=== PATIENT | male | born 1990 | race Two or more races ===

== ENCOUNTER 2022-08-03 17:56 | Emergency (ER) | payer MEDICAID, SELFPAY ==
[2022-08-03 18:16] VITALS: BP 163/109; PULSE 114; RESP 18; TEMP 36.6; O2SAT 98; BMI 29.0
--- NOTE | 2022-08-03 18:16 | ECG_ITS ---
Test Reason : weakness Blood Pressure : / mmHG Vent. Rate : 092 BPM Atrial Rate : 092 BPM P-R Int : 144 ms QRS Dur : 086 ms QT Int : 352 ms P-R-T Axes : 068 061 -22 degrees QTc Int : 435 ms Normal sinus rhythm Possible Inferior infarct (cited on or before 26-APR-2015) T wave abnormality, consider lateral ischemia Abnormal ECG When compared with ECG of 26-APR-2015 17:22, No significant change was found Referred By: Fady Springer Electronically Signed By:SUSANA DOUGHERTY MD
--- NOTE | 2022-08-03 18:16 | ED.GENADULT ---
HPI - General Adult General Chief complaint: General Medical <PATRICIA Morse - Last Filed: 08/03/22 18:20> Stated complaint: not feeling well <PATRICIA Morse - Last Filed: 08/03/22 18:20> Time Seen by Provider: 08/04/22 00:22 <PATRICIA Morse - Last Filed: 08/03/22 18:20> Source: patient, RN notes reviewed and old records reviewed <Ken Campa - Last Filed: 08/04/22 00:58> Mode of arrival: ambulatory <Ken Campa - Last Filed: 08/04/22 00:58> Limitations: no limitations <Ken Campa - Last Filed: 08/04/22 00:58> History of Present Illness HPI narrative: 32-year-old male presents for evaluation of ?sometimes my whole body feels numb. Currently states he does not feel this way. He denies any cardiac complaints with exception of ?dry skin a my penis and a whitish discharge. ? He reports he is not circumcised He states that he has not been sexually active in at least 2 years so he is concerned for a yeast infection Patient also reports he has a seizure disorder and he is out of his Depakote for which he takes 1 g b.i.d. He has not had this medication at least a week Patient reports he does not her primary doctor which is why could not get a refill He states that he also takes Keppra and metformin but he has these medications at home still Patient reports that he used to be any blood pressure medication, is unsure which 1 it was but he has not been on this for at least 2 years Denies any headaches, fevers, chills, cough, chest pain, abdominal pain, nausea, vomiting <Ken Campa - Last Filed: 08/04/22 00:58> Related Data Home medications: Previous Rx's Medication Instructions Recorded clotrimazole 1 % topical cream 1 appl topical BID 2 weeks #30 08/04/22 grams divalproex 500 mg tablet,delayed 1,000 mg PO BID #120 tabs 08/04/22 release (Depakote) <PATRICIA Morse Last Filed: 08/03/22 18:20> Allergies/adverse reactions: Allergies Allergy/AdvReac Type Severity Reaction Status Date / Time No Known Allergies Allergy Unverified 12/19/19 16:38 <PATRICIA Morse - Last Filed: 08/03/22 18:20> Review of Systems Constitutional: Constitutional: Denies body ache(s), Denies fever(s), Denies headache(s), Reports malaise and Denies weakness <Kne Campa Last Filed: 08/04/22 00:58> Eyes: Eyes: Denies blurry vision <Ken Campa Last Filed: 08/04/22 00:58> ENT: Denies headache(s) and Denies sore throat <Ken Campa Last Filed: 08/04/22 00:58> Cardiovascular: Cardiovascular: Denies chest pain, Denies rapid heart rate, Denies dyspnea and Denies dyspnea on exertion <Ken Campa Last Filed: 08/04/22 00:58> Respiratory: Respiratory: Denies chest congestion, Denies cough, Denies dyspnea and Denies dyspnea on exertion <Ken Campa Last Filed: 08/04/22 00:58> Gastrointestinal: Gastrointestinal: Denies abdominal pain, Denies diarrhea, Denies nausea and Denies vomiting <Ken Campa Last Filed: 08/04/22 00:58> Genitourinary: Genitourinary: Reports other (Reports dry, cracked penis and whitish discharge around the foreskin) <Ken Campa Last Filed: 08/04/22 00:58> Musculoskeletal: Musculoskeletal: Denies back pain <Ken Campa Last Filed: 08/04/22 00:58> Neurologic: Denies headache(s) and Denies weakness <Ken Campa Last Filed: 08/04/22 00:58> PMF Social History Social History: Social History Use of substances other than those prescribed or required for medical reasons: No Advance Directives: No Advance Directives Information Provided: Yes <PATRICIA Morse - Last Filed: 08/03/22 18:20> Physical Exam ED Vital Signs: Vital Signs - 24 hr 08/03/22 18:16 05/03/23 23:04 08/03/22 23:50 Temperature 98 F 96.9 F 98.3 F Pulse Rate 114 H 93 90 Respiratory Rate 18 18 16 Blood Pressure 163/109 H 142/94 H 141/92 H Pulse Oximetry 98 98 97 Oxygen Delivery Method Room Air Room Air Room Air BMI result Body Mass Index 29.0 <PATRICIA Morse - Last Filed: 08/03/22 18:20> Vital Signs - 24 hr 08/03/22 18:16 08/03/22 23:04 08/03/22 23:50 Temperature 98 F 96.9 F 98.3 F Pulse Rate 114 H 93 90 Respiratory Rate 18 18 16 Blood Pressure 163/109 H 142/94 H 141/92 H Pulse Oximetry 98 98 97 Oxygen Delivery Method Room Air Room Air Room Air BMI result Body Mass Index 29.0 <Ken Campa - Last Filed: 08/04/22 00:58> Const General: healthy appearing, comfortable, no acute distress, alert and awake <Ken Campa - Last Filed: 08/04/22 00:58> Nutritional Appearance: well nourished <Ken Campa Last Filed: 08/04/22 00:58> Orientation/consciousness: patient oriented x3 <Ken Campa Last Filed: 08/04/22 00:58> HENMT Head: Yes normocephalic and Yes atraumatic <Ken Campa Last Filed: 08/04/22 00:58> Throat: Yes posterior oropharynx normal <Ken Campa Last Filed: 08/04/22 00:58> Eyes Eyelids: Yes eyelids normal <Ken Campa Last Filed: 08/04/22 00:58> Conjunctivae: conjunctivae normal <Ken Campa Last Filed: 08/04/22 00:58> Sclerae: sclerae normal <Ken Cardenas Last Filed: 08/04/22 00:58> Corneas: corneas normal <Ken Campa Last Filed: 08/04/22 00:58> Pupils: Equal, round and reactive pupils present <Ken Campa Last Filed: 08/04/22 00:58> EOM: EOMs intact bilaterally <Ken Cardenas Last Filed: 08/04/22 00:58> Neck Neck: Yes full ROM <Ken Cardenas Last Filed: 08/04/22 00:58> Resp Effort & Inspection: normal respiratory effort, able to speak in complete sentences, no audible wheezes and not labored <Ken Cardenas Last Filed: 08/04/22 00:58> Auscultation: clear to auscultation bilaterally <Ken ORawlins - Last Filed: 08/04/22 00:58> Cardio Rate: regular rate <Ken ORawlins Filed: 08/04/22 00:58> Rhythm: regular rhythm <Ken ORyne Filed: 08/04/22 00:58> GI Inspection: No distended <Ken ORyne Filed: 08/04/22 00:58> Palpation (GI): Soft to palpation, not firm, nontender, no guarding and not rigid <Kencooper Cardenas Last Filed: 08/04/22 00:58> Auscultation: normoactive bowel sounds <Ken ORawlins Filed: 08/04/22 00:58> Other: The patient's foreskin is easily retractable but is mildly edematous. The glans of the penis is slightly erythematous with minimal his discharge underneath the foreskin. No urethral discharge <Ken Cardenas Last Filed: 08/04/22 00:58> Skin General skin exam: elasticity normal <Ken ORawlins - Last Filed: 08/04/22 00:58> Neuro General: patient oriented x3 <Kencooper Cardenas Last Filed: 08/04/22 00:58> Cranial nerves: Yes Equal, round and reactive pupils present and Yes Bilaterally intact EOM present <Kencooper Cardenas Last Filed: 08/04/22 00:58> Cognition (Neuro): normal cognition <Kencooper Cardenas Last Filed: 08/04/22 00:58> Extrem Other: Moving all extremities well without any obvious deformities <Kencooper Cardenasy - Last Filed: 08/04/22 00:58> Course Course Course Narrative: This is an RME: Additional HPI, ROS, PE not included below will be deferred to primary provider. 32-year-old male hx HTN, HLD, DM presents for evaluation of not feeling well, reports he feels numb from his head down to his feet for the past 2 days, also concerned he might have a yeast infection, weight discharge around the head of the penis. Patient also reports he needs the refill on his seizure medications because he has not been taking them as he ran out and does not have a PCP. Patient is not concerns for STD states he is not sexually active. On exam patient is noted to be tachycardic heart rate 120 blood pressure 202/117 in the left arm, 163/109 right arm. Patient without chest pain or shortness of breath also no headache, vision changes, NHIHSS-0 . Tells me he is unsure if he has HTN meds. Plan- labs, ekg <PATRICIA Morse - Last Filed: 08/03/22 18:20> Medical Decision Making Medical Decision Making [facility] Narrative: 32-year-old male presents for evaluation of balanitis likely Darlene. Will treat with clotrimazole. He also complains of occasional whole-body numbness which could be related to anxiety but he currently does not feel this. He was somewhat hypertensive on arrival but this improved without any intervention. Patient reports he plans to get that to the primary doctor starting tomorrow. He has his Keppra and metformin at home, I will prescribe a month supply of Depakote and he was given 1 dose in the ER. His blood work was significant for a magnesium of 1.4, this was repleted in the ER. Patient was offered STD testing but declined as he has not been sexually active in at least 2 years <Ken Campa - Last Filed: 08/04/22 00:58> Differential Diagnosis Balanitis UTI Gonorrhea Chlamydia Seizure disorder Hypertension <Ken Campa - Last Filed: 08/04/22 00:58> Lab Data [facility] Lab Attestation statement: I reviewed the patient's lab results. <Ken Campa - Last Filed: 08/04/22 00:58> Patient has elevated glucose to 282 but no evidence of DKA. His magnesium was 1.4 which was replaced, otherwise reassuring lab values <Ken GiordanoRawlins - Last Filed: 08/04/22 00:58> Result Diagrams: 08/03/22 20:18 08/03/22 20:18 <PATRICIA Morse - Last Filed: 08/03/22 18:20> Labs: Lab Results 08/03/22 08/03/22 08/03/22 Range/Units 20:18 20:18 20:18 WBC 9.7 (4.8-10.8) X10*3/uL RBC 5.64 (4.60-5.80) X10*6/uL Hgb 15.8 (14.0-18.0) g/dl Hct 45.3 (42.0-52.0) % MCV 80.3 (80.0-98.0) fL MCH 28.0 (27.0-33.0) pg MCHC 34.9 (31.0-36.0) g/dl RDW 12.8 (11.0-16.0) % Plt Count 326 (160-400) X10*3/uL MPV 9.7 (9.4-12.4) fL Immature Gran % (Auto) 1.0 H (0.0-0.4) % Neut % (Auto) 49.0 (45-73) % Lymph % (Auto) 41.5 H (20-40) % Frontier % (Auto) 7.7 (2-11) % Eos % (Auto) 0.4 (0-4) % Baso % (Auto) 0.4 (0-2) % Lymph # (Auto) 4.0 (1.2-4.9) X10*3/uL Frontier # (Auto) 0.8 (0.1-1.2) X10*3/uL Eos # (Auto) 0.0 (0.0-0.4) X10*3/uL Baso # (Auto) 0.0 (0.0-0.2) X10*3/uL Abs Immat Gran (auto) 0.10 H (0.00-0.03) X10*3/uL Absolute Neuts (auto) 4.8 (2.0-8.3) x10*3/uL Absolute Nucleated RBC 0.000 (0.0-0.012) X10*3/uL Nucleated RBC % (auto) 0.0 (0.0-0.2) /100WBC Sodium 136 (135-145) mmol/L Potassium 3.8 (3.3-5.1) mmol/L Chloride 98 (96-108) mmol/L Carbon Dioxide 26 (22-29) mmol/L Anion Gap 16 (12-20) BUN 13 (9-16) mg/dL Creatinine 1.01 (0.5-1.4) mg/dL Estim Creat Clear Calc 106.7 Estimated GFR > 60 Random Glucose 282 H (60-115) mg/dL Calcium 9.9 (8.4-10.2) mg/dL Magnesium 1.4 L* (1.6-2.6) mg/dL Total Bilirubin 0.4 (0.0-1.0) mg/dL AST 24 (5-37) U/L ALT 50 H (0-40) U/L Alkaline Phosphatase 72 (39-117) U/L Troponin I High Sens < 2.7 (<3.5-35.0) ng/L Total Protein 8.4 H (6.5-8.0) g/dL Albumin 4.8 (3.5-5.0) g/dL <PATRICIA Morse - Last Filed: 08/03/22 18:20> Lab Results 08/03/22 08/03/22 08/03/22 Range/Units 20:18 20:18 20:18 WBC 9.7 (4.8-10.8) X10*3/uL RBC 5.64 (4.60-5.80) X10*6/uL Hgb 15.8 (14.0-18.0) g/dl Hct 45.3 (42.0-52.0) % MCV 80.3 (80.0-98.0) fL MCH 28.0 (27.0-33.0) pg MCHC 34.9 (31.0-36.0) g/dl RDW 12.8 (11.0-16.0) % Plt Count 326 (160-400) X10*3/uL MPV 9.7 (9.4-12.4) fL Immature Gran % (Auto) 1.0 H (0.0-0.4) % Neut % (Auto) 49.0 (45-73) % Lymph % (Auto) 41.5 H (20-40) % Frontier % (Auto) 7.7 (2-11) % Eos % (Auto) 0.4 (0-4) % Baso % (Auto) 0.4 (0-2) % Lymph # (Auto) 4.0 (1.2-4.9) X10*3/uL Frontier # (Auto) 0.8 (0.1-1.2) X10*3/uL Eos # (Auto) 0.0 (0.0-0.4) X10*3/uL Baso # (Auto) 0.0 (0.0-0.2) X10*3/uL Abs Immat Gran (auto) 0.10 H (0.00-0.03) X10*3/uL Absolute Neuts (auto) 4.8 (2.0-8.3) x10*3/uL Absolute Nucleated RBC 0.000 (0.0-0.012) X10*3/uL Nucleated RBC % (auto) 0.0 (0.0-0.2) /100WBC Sodium 136 (135-145) mmol/L Potassium 3.8 (3.3-5.1) mmol/L Chloride 98 (96-108) mmol/L Carbon Dioxide 26 (22-29) mmol/L Anion Gap 16 (12-20) BUN 13 (9-16) mg/dL Creatinine 1.01 (0.5-1.4) mg/dL Estim Creat Clear Calc 106.7 Estimated GFR > 60 Random Glucose 282 H (60-115) mg/dL Calcium 9.9 (8.4-10.2) mg/dL Magnesium 1.4 L* (1.6-2.6) mg/dL Total Bilirubin 0.4 (0.0-1.0) mg/dL AST 24 (5-37) U/L ALT 50 H (0-40) U/L Alkaline Phosphatase 72 (39-117) U/L Troponin I High Sens < 2.7 (<3.5-35.0) ng/L Total Protein 8.4 H (6.5-8.0) g/dL Albumin 4.8 (3.5-5.0) g/dL <Ken Campa - Last Filed: 08/04/22 00:58> Discharge Plan Discharge Clinical Impression: Balanitis, Seizure disorder, Acute hyperglycemia, Hypomagnesemia <PATRICIA Morse - Last Filed: 08/03/22 18:20> Patient Disposition: Home, Self-Care <PATRICIA Morse - Last Filed: 08/03/22 18:20> Instructions: [place] (ED) <PATRICIA Morse - Last Filed: 08/03/22 18:20> Additional Instructions: Your magnesium was low today at 1.4 which was replaced. Follow-up with your primary doctor to have this lab value repeated within 2 weeks Continue taking your metformin and Keppra as prescribed You may restart your Depakote and your provided with a dose in the ER Your blood sugar was elevated to 282, follow this up with your primary doctor Use the clotrimazole ointment twice daily for the next 7 days for yeast infection <PATRICIA Morse - Last Filed: 08/03/22 18:20> Prescriptions: New divalproex [Depakote] 500 mg tablet,delayed release (DR/EC) 1,000 mg PO BID Qty: 120 0RF clotrimazole 1 % cream 1 appl topical BID 14 Days Qty: 30 0RF <PATRICIA Morse - Last Filed: 08/03/22 18:20>
[2022-08-03 20:22] LABS: Basophils Percent Auto 0.4 % (0-2); Eosinophils Percent Auto 0.4 % (0-4); Hematocrit 45.3 % (42.0-52.0); Hemoglobin 15.8 g/dl (14.0-18.0); Lymphocytes Percent Auto 41.5 % (20-40); MANUAL DIFF FLAG NO; Mean Corpuscular HGB Conc 34.9 g/dl (31.0-36.0); Mean Corpuscular Volume 80.3 fL (80.0-98.0); Mean Platelet Volume 9.7 fL (9.4-12.4); Monocytes Absolute Auto 0.8 X10*3/uL (0.1-1.2); Monocytes Percent Auto 7.7 % (2-11); Neutrophils Absolute Auto 4.8 x10*3/uL (2.0-8.3); Platelet Count 326 X10*3/uL (160-400); Red Blood Count 5.64 X10*6/uL (4.60-5.80); Red Cell Distribution Width 12.8 % (11.0-16.0); White Blood Count 9.7 X10*3/uL (4.8-10.8)
[2022-08-03 20:52] LABS: Alanine Aminotransferase 50 U/L (0-40); Albumin Level 4.8 g/dL (3.5-5.0); Alkaline Phosphatase 72 U/L (39-117); Anion Gap 16 (12-20); Aspartate Amino Transferase 24 U/L (5-37); Bilirubin Total 0.4 mg/dL (0.0-1.0); Blood Urea Nitrogen 13 mg/dL (9-16); Calcium 9.9 mg/dL (8.4-10.2); Carbon Dioxide 26 mmol/L (22-29); Chloride 98 mmol/L (96-108); Creatinine Clr Calc Pharmacy 106.7; Estimated Glomerular Filt Rate > 60; Glucose Random 282 mg/dL (60-115); Magnesium 1.4 mg/dL (1.6-2.6); Potassium 3.8 mmol/L (3.3-5.1); Sodium 136 mmol/L (135-145); Total Protein 8.4 g/dL (6.5-8.0); Troponin-I High Sensitivity < 2.7 ng/L (<3.5-35.0)
[2022-08-03 23:04] VITALS: BP 142/94; PULSE 93; RESP 18; TEMP 36.1; O2SAT 98
[2022-08-03 23:50] VITALS: BP 141/92; PULSE 90; RESP 16; TEMP 36.8; O2SAT 97
[2022-08-04] MEDS: Divalproex Sodium ER 500 MG TAB.ER.24H 1000 MG PO (00:55)
[2022-08-04] MEDS: Magnesium Oxide 400 MG TABLET 800 MG PO (00:56)
== END 2022-08-04 01:11 | disposition home or self-care (01) ==
PROVIDERS: Physician Assistant; Emergency Provider Internal Medicine
DX: N48.1 Balanitis (principal); E83.42 Hypomagnesemia; E11.65 Type 2 diabetes mellitus with hyperglycemia; G40.909 Epilepsy, unspecified, not intractable, without status epilepticus; I10 Essential (primary) hypertension; E78.5 Hyperlipidemia, unspecified; Z79.899 Other long term (current) drug therapy
CPT/HCPCS: 36415; 80053; 83735; 84484; 85025; 93005; 99283; 99284

== ENCOUNTER 2022-09-05 15:14 | Emergency (ER) | payer MEDICAID, SELFPAY ==
--- NOTE | ~2022-09-05 | XR_ITS ---
EXAMINATION: XR SHOULDER, LEFT CLINICAL INFORMATION: Shoulder pain COMPARISON: None available. TECHNIQUE: Three views of the left shoulder. FINDINGS: There is calcific tendinitis/tendinosis with calcification in the supraspinatus tendon. Some mild degenerative changes are present at the inferior glenohumeral joint. No fractures are seen. The AC joint appears unremarkable. XR/XR shoulder LT min 2V IMPRESSION: Calcific tendinitis/tendinosis and mild degenerative changes as described above.
[2022-09-05 17:34] VITALS: BP 172/121; PULSE 90; RESP 17; TEMP 36; O2SAT 98; BMI 30.6
--- NOTE | 2022-09-05 17:41 | ED.GENADULT ---
HPI - General Adult General Chief complaint: General Medical Stated complaint: left shoulder pain Time Seen by Provider: 09/05/22 20:47 Source: patient Mode of arrival: ambulatory History of Present Illness HPI narrative: 32-year-old diabetic presents with complaints of increasing stiffness of his left shoulder with out noted trauma and denies any fever, chills. Patient does states that he has run out of his diabetic medication is using his mother's. Related Data Previous Rx's Medication Instructions Recorded clotrimazole 1 % topical cream 1 appl topical BID 2 weeks #30 08/04/22 grams divalproex 500 mg tablet,delayed 1,000 mg PO BID #120 tabs 08/04/22 release (Depakote) lisinopril 5 mg tablet 5 mg PO DAILY #30 tabs 09/05/22 metformin 1,000 mg tablet 1,000 mg PO BIDWMEAL #120 tabs 09/05/22 Allergies Allergy/AdvReac Type Severity Reaction Status Date / Time No Known Allergies Allergy Unverified 12/19/19 16:38 Review of Systems Review of Systems: Pertinent positives and negatives as stated in [facility] Past Medical History Source: nursing notes reviewed Social History Social History Use of substances other than those prescribed or required for medical reasons: No Substance Use Type: Marijuana Advance Directives: No Advance Directives Information Provided: No Physical Exam ED Vital Signs: Vital Signs - 24 hr 09/05/22 17:34 09/05/22 20:11 09/05/22 20:42 Temperature 96.8 F 96.9 F Pulse Rate 90 74 94 Respiratory Rate 17 16 12 Blood Pressure 172/121 H 171/105 H 182/107 H Pulse Oximetry 98 98 98 Oxygen Delivery Method Room Air Room Air Room Air BMI result Body Mass Index 30.6 VITAL SIGNS: Reviewed. GENERAL: Well developed, well nourished, in no acute distress. HEAD: Normocephalic/atraumatic EYES: PERRLA, EOMI EARS: Ext canals without abnormality NOSE: Nares patent bilateral OROPHARYNX: no oral lesions noted, posterior pharynx clear NECK: Supple, no adenopathy LUNGS: Normal breath sounds. No adventitious sounds or accessory muscle use. SpO2<98> CARDIOVASCULAR: Regular rate and rhythm without noted murmurs ABDOMEN: Soft, non-tender, non-distended with bowel sounds. MUSCULOSKELETAL: No tenderness, deformities, or effusions noted on gross inspection. EXTREMITIES: No cyanosis, clubbing or edema; LEFT SHOULDER: There is no deformity/erythema/induration patient is protective of the shoulder, however there is good sensation and palpable pulses distal there are no cords noted.. SKIN: Inspection of the skin reveals no rashes NEUROLOGIC: Alert and oriented x 4. Strength and sensation to light touch were grossly intact x 4. Course Course Course Narrative: Patient complains of left shoulder pain without injury for the last several days, denies any fever, he also complains of a yeast infection Medical Decision Making Medical Decision Making MDM Narrative: 32-year-old male with history and clinical presentation most consistent with frozen shoulder after review of all investigations. This was discussed with the patient at bedside he states he does not have a primary care provider and was provided with a list of [facility] providers at the time of discharge. As patient stated that he does not have a PCP and has run out of his diabetic medication I am sending him home with 2 months of metformin and instructions to follow-up with Dr Amaro who manages his seizures. Differential Diagnosis Please see the discussion above Lab Data Please see the discussion above 09/05/22 20:08 09/05/22 20:08 Labs: Lab Results 09/05/22 09/05/22 09/05/22 Range/Units 20:08 20:08 20:08 WBC 14.3 H (4.8-10.8) X10*3/uL RBC 5.69 (4.60-5.80) X10*6/uL Hgb 15.8 (14.0-18.0) g/dl Hct 46.9 (42.0-52.0) % MCV 82.4 (80.0-98.0) fL MCH 27.8 (27.0-33.0) pg MCHC 33.7 (31.0-36.0) g/dl RDW 12.8 (11.0-16.0) % Plt Count 308 (160-400) X10*3/uL MPV 10.0 (9.4-12.4) fL Immature Gran % (Auto) 0.8 H (0.0-0.4) % Neut % (Auto) 69.8 (45-73) % Lymph % (Auto) 22.2 (20-40) % Gilliam % (Auto) 6.8 (2-11) % Eos % (Auto) 0.1 (0-4) % Baso % (Auto) 0.3 (0-2) % Lymph # (Auto) 3.2 (1.2-4.9) X10*3/uL Gilliam # (Auto) 1.0 (0.1-1.2) X10*3/uL Eos # (Auto) 0.0 (0.0-0.4) X10*3/uL Baso # (Auto) 0.0 (0.0-0.2) X10*3/uL Abs Immat Gran (auto) 0.11 H (0.00-0.03) X10*3/uL Absolute Neuts (auto) 10.0 H (2.0-8.3) x10*3/uL Absolute Nucleated RBC 0.000 (0.0-0.012) X10*3/uL Nucleated RBC % (auto) 0.0 (0.0-0.2) /100WBC Sodium 140 (135-145) mmol/L Potassium 4.5 (3.3-5.1) mmol/L Chloride 101 (96-108) mmol/L Carbon Dioxide 26 (22-29) mmol/L Anion Gap 18 (12-20) BUN 7 L (9-16) mg/dL Creatinine 0.71 (0.5-1.4) mg/dL Estim Creat Clear Calc 155.8 Estimated GFR > 60 Random Glucose 162 H (60-115) mg/dL Calcium 10.5 H D (8.4-10.2) mg/dL Urine Color Yellow Urine Appearance Clear Urine pH 5.5 (5.0-9.0) Ur Specific [place] >= 1.030 H (1.005-1.025) Urine Protein 100 (2+) H (Neg-Trace) mg/dL Urine Glucose (UA) >=1000 H (Negative) mg/dL Urine Ketones 40 (Negative) mg/dL Urine Blood Negative (Negative) Urine Nitrite Negative (Negative) Ur Leukocyte Esterase Negative (Negative) Urine RBC 0-2 (0-2) /HPF Urine WBC 0-5 (0-5) /HPF Ur Squamous Epith Cells 0-2 (0-2) /HPF Urine Bacteria None Seen (None Seen) Hyaline Casts 0-2 (0-2) /LPF Radiology Impression Radiologist Impression: My interpretation is in agreement with radiology's impression. External Record Review External record reviewed: Prior outpatient labs Discharge Plan Discharge Clinical Impression: Diabetic frozen shoulder associated with type 2 diabetes mellitus, Diabetes Patient Disposition: Home, Self-Care Instructions: Adhesive Capsulitis (ED), Diabetes and Your Skin (ED), Diabetes and Nutrition (ED), Diabetes and Exercise (ED) Additional Instructions: 1. Please resume all home medications as prescribed. 2. You have been given a list of primary care providers, please call them tomorrow morning to attempt for re-evaluation. Return to the ER for any worsening symptoms. Prescriptions: New metformin 1,000 mg tablet 1,000 mg PO BIDWMEAL Qty: 120 0RF lisinopril 5 mg tablet 5 mg PO DAILY Qty: 30 0RF No Action divalproex [Depakote] 500 mg tablet,delayed release (DR/EC) 1,000 mg PO BID Qty: 120 0RF clotrimazole 1 % cream 1 appl topical BID 14 Days Qty: 30 0RF
[2022-09-05 20:11] VITALS: BP 171/105; PULSE 74; RESP 16; TEMP 36.1; O2SAT 98
[2022-09-05 20:12] LABS: MANUAL DIFF FLAG NO
--- NOTE | 2022-09-05 20:12 | MHC.EDTECH ---
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
[2022-09-05 20:15] LABS: Basophils Percent Auto 0.3 % (0-2); Eosinophils Percent Auto 0.1 % (0-4); Hematocrit 46.9 % (42.0-52.0); Hemoglobin 15.8 g/dl (14.0-18.0); Imm Gran Abs Auto 0.11 X10*3/uL (0.00-0.03); Imm Gran Pct Auto 0.8 % (0.0-0.4); Lymphocytes Absolute Auto 3.2 X10*3/uL (1.2-4.9); Lymphocytes Percent Auto 22.2 % (20-40); Mean Corpuscular HGB Conc 33.7 g/dl (31.0-36.0); Mean Corpuscular Hemoglobin 27.8 pg (27.0-33.0); Mean Corpuscular Volume 82.4 fL (80.0-98.0); Monocytes Percent Auto 6.8 % (2-11); Neutrophils Percent Auto 69.8 % (45-73); Platelet Count 308 X10*3/uL (160-400); Red Blood Count 5.69 X10*6/uL (4.60-5.80); Red Cell Distribution Width 12.8 % (11.0-16.0); White Blood Count 14.3 X10*3/uL (4.8-10.8)
[2022-09-05 20:16] LABS: Appearance Urine Clear; Color Urine Yellow; Glucose Urine UA >=1000 mg/dL (Negative); Leukocyte Esterase Urine Negative (Negative); Nitrite Urine Negative (Negative); PH 5.5 (5.0-9.0); Specific Gravity - Urine >= 1.030 (1.005-1.025); UMIC TRIGGER UACC YES; Urine Blood Negative (Negative); Urine Ketones 40 mg/dL (Negative); Urine Protein 100 (2+) mg/dL (Neg-Trace)
[2022-09-05 20:20] LABS: Bacteria Urine None Seen (None Seen); Hyaline Casts Urine 0-2 /LPF (0-2); RBC Urine 0-2 /HPF (0-2); Squamous Epithelial Cell Urine 0-2 /HPF (0-2); WBC Urine 0-5 /HPF (0-5)
[2022-09-05 20:37] LABS: Anion Gap 18 (12-20); Blood Urea Nitrogen 7 mg/dL (9-16); Calcium 10.5 mg/dL (8.4-10.2); Carbon Dioxide 26 mmol/L (22-29); Chloride 101 mmol/L (96-108); Creatinine Clr Calc Pharmacy 155.8; Estimated Glomerular Filt Rate > 60; Glucose Random 162 mg/dL (60-115); Potassium 4.5 mmol/L (3.3-5.1); Sodium 140 mmol/L (135-145)
[2022-09-05 20:42] VITALS: BP 182/107; PULSE 94; RESP 12; O2SAT 98
[2022-09-05 22:22] VITALS: BP 151/82; PULSE 78; RESP 12; O2SAT 98
== END 2022-09-05 22:25 | disposition home or self-care (01) ==
PROVIDERS: Physician Assistant Medical; Emergency Provider Student in an Organized Health Care Education/Training Program
DX: E11.69 Type 2 diabetes mellitus with other specified complication (principal); M75.02 Adhesive capsulitis of left shoulder; Z79.84 Long term (current) use of oral hypoglycemic drugs
CPT/HCPCS: 36415; 73030; 80048; 81001; 85025; 99283; 99284

== ENCOUNTER 2022-11-18 10:01 | Outpatient (REF) | payer MEDICAID, SELFPAY ==
[2022-11-18 12:08] LABS: Alanine Aminotransferase 30 U/L (0-40); Albumin Level 4.7 g/dL (3.5-5.0); Alkaline Phosphatase 63 U/L (39-117); Anion Gap 19 (12-20); Aspartate Amino Transferase 19 U/L (5-37); Bilirubin Total 0.5 mg/dL (0.0-1.0); Blood Urea Nitrogen 18 mg/dL (9-16); Calcium 9.3 mg/dL (8.4-10.2); Carbon Dioxide 25 mmol/L (22-29); Chloride 98 mmol/L (96-108); Cholesterol 190 mg/dL; Estimated Glomerular Filt Rate > 60; Glucose Random 167 mg/dL (60-115); HDL Cholesterol 26 mg/dL; Sodium 138 mmol/L (135-145); Total Protein 8.4 g/dL (6.5-8.0); Triglycerides 540 mg/dL
[2022-11-18 12:21] LABS: Creatinine Urine 146.57 mg/dL; Microalbum/Creatinine Ratio Ur 72.3 ug/mg cr
[2022-11-19 03:39] LABS: Syphilis Screen Nonreactive (Nonreactive)
[2022-11-19 04:18] LABS: HIV AB/AG Nonreactive (Nonreactive); HIV Num 1 0.05 S/CO (0.00-0.99)
[2022-11-19 04:22] LABS: ~HepC Num1 0.13 S/CO (0.00-0.79); ~Hepatitis C Antibody Nonreactive (Nonreactive)
== END 2022-11-18 10:02 | disposition home or self-care (01) ==
LOC: HO.HHCL 10:01
PROVIDERS: Visit Provider Nurse Practitioner Primary Care
DX: Z00.00 Encounter for general adult medical examination without abnormal findings (principal); Z11.4 Encounter for screening for human immunodeficiency virus [HIV]; Z11.3 Encounter for screening for infections with a predominantly sexual mode of transmission; E11.65 Type 2 diabetes mellitus with hyperglycemia
CPT/HCPCS: 36415; 80053; 80061; 82043; 86780; 86803; 87389

== ENCOUNTER 2022-12-29 12:00 | Outpatient (REF) | payer MEDICAID, SELFPAY | END 2022-12-29 12:01 | disposition home or self-care (01) | LOC: HO.HHCLNP 12:00 | PROVIDERS: Visit Provider Registered Nurse | DX: Z13.89 Encounter for screening for other disorder (principal) | CPT/HCPCS: 0353U ==

== ENCOUNTER → 2023-01-25 14:03 | Outpatient (REF) | payer MEDICAID, SELFPAY | LOC: HO.SL 14:03 | PROVIDERS: Visit Provider Nurse Practitioner Primary Care | DX: Z13.89 Encounter for screening for other disorder (principal) ==

== ENCOUNTER 2023-07-19 09:42 | Outpatient (REF) | payer MEDICAID, SELFPAY ==
[2023-07-19 12:02] LABS: Estimated Average Glucose 189 mg/dL; Hemoglobin A1c % 8.2 % (<6.0)
[2023-07-19 12:14] LABS: Alanine Aminotransferase 31 U/L (0-40); Albumin Level 4.6 g/dL (3.5-5.0); Alkaline Phosphatase 79 U/L (39-117); Anion Gap 17 (12-20); Aspartate Amino Transferase 17 U/L (5-37); Bilirubin Total 0.5 mg/dL (0.0-1.0); Blood Urea Nitrogen 11 mg/dL (9-16); Calcium 9.4 mg/dL (8.4-10.2); Carbon Dioxide 24 mmol/L (22-29); Chloride 100 mmol/L (96-108); Cholesterol 142 mg/dL (<200); Estimated Glomerular Filt Rate > 60; Glucose Random 199 mg/dL (60-115); HDL Cholesterol 29 mg/dL (>40); LDL Cholesterol Calculated 56 mg/dL (<100); Potassium 4.2 mmol/L (3.3-5.1); Sodium 137 mmol/L (135-145); Total Protein 8.2 g/dL (6.5-8.0); Triglycerides 288 mg/dL (<150)
[2023-07-19 12:19] LABS: Vitamin B12 593 pg/mL (200-900)
== END 2023-07-19 09:43 | disposition home or self-care (01) ==
LOC: HO.HHCL 09:42
PROVIDERS: Visit Provider Nurse Practitioner Primary Care
DX: E11.69 Type 2 diabetes mellitus with other specified complication (principal); E78.5 Hyperlipidemia, unspecified
CPT/HCPCS: 36415; 80053; 80061; 82607; 83036

== ENCOUNTER 2023-08-16 14:41 | Outpatient (AMB) | payer MEDICAID, SELFPAY ==
--- NOTE | 2023-08-16 14:45 | MHC.OFFVIS ---
Intake Visit Reasons: phimosis Intake Note: New Patient presents for initial visit for Phimosis Urology Medications: none Blood Thinner: none Space Buyer Required: No Accompanied by: Self / Same As Patient Allergies No Known Allergies Allergy (Unverified 08/16/23 15:09) Medication List - Last Reconciled 08/16/23 by YASMANY Cano atorvastatin 40 mg PO DAILY divalproex (Depakote) 1,000 mg (2 x 500 mg) PO BID lisinopril 5 mg PO DAILY metformin 1,000 mg PO BIDWMEAL HPI Comments Details: Andrés is a very pleasant 33-year-old male patient of Dr. Faust. He has a past medical history of type 2 diabetes. He presents to the office today as a new patient for phimosis. In discussion with the patient today he reports noting over the last year to be having issues with retracting penile foreskin. He reports being prescribed a topical cream that he felt was beneficial however most recently feels this is not been helpful. In assessment of the patient today grade 3 phimosis noted. Otherwise no open areas, lesions, and or drainage noted. Discussed at length further treatment options with topical steroids and or circumcision. In review of patient's chart it appears A1c 07/25 8.2. Discussed importance of managing diabetes for overall health and for possible near future circumcision. He otherwise denies any bothersome urinary issues. He denies urinary urgency, urinary frequency, incontinence, nocturia, hematuria, dysuria, foul smelling urine, changes to urinary stream, flank pain, fever, and or chills. He is happy with his current voiding parameters. With in office urinalysis results reviewed with the patient today. [facility] Social History Substance Use Type: Marijuana Review of Systems Const All systems reviewed & are unremarkable except as noted in HPI and below Physical Exam Const General: cooperative, healthy appearing, comfortable, no acute distress, well developed, alert and awake Orientation/consciousness: patient oriented x3 Limitations: no limitations HEENT Head: Yes normal to inspection, Yes normocephalic and Yes atraumatic Ears: hearing grossly normal bilaterally Eyes General: appearance normal, both eyes and all related structures Neck Neck: Yes normal visual inspection and Yes trachea midline Chest Chest palpation & inspection: normal inspection of the chest Resp Effort & Inspection: normal respiratory effort and able to speak in complete sentences Cardio Rate: regular rate GI Inspection: Yes normal to inspection General: Yes no CVA tenderness Penis: uncircumcised and phimosis (grade 3) Scrotum: scrotum normal Testes: Testes normal Back/Spine/Pelvis Back: no CVA tenderness Skin General skin exam: no rashes or lesions noted Neuro General: patient oriented x3 Extrem General: Yes normal to inspection Psych Appearance: grossly normal and well kempt Mental Status: mental status grossly normal Speech and movement: Normal speech and movement present and Clear speech present Affect: normal affect Attitude: cooperative Thought process: Normal thought process present Thought content: Normal thought content present Insight: Fair insight present (Psych) Judgement: Fair judgement present (Psych) Results AMB Urinalysis, Automated UA Leukoctes 0 Collin/uL Last Edit by babberly on 08/16/23 15:00 UA Nitrite Negative Last Edit by babberly on 08/16/23 15:00 UA Urobilinogen 0.2 mg/dL Last Edit by babberly on 08/16/23 15:00 UA Protein 30 mg/dL Last Edit by babberly on 08/16/23 15:00 UA pH 5.5 Last Edit by babberly on 08/16/23 15:00 UA Blood 0 Joss/uL Last Edit by babberly on 08/16/23 15:00 UA Specific [place] 1.010 Last Edit by babberly on 08/16/23 15:00 UA Ketone Positive Last Edit by babberly on 08/16/23 15:00 UA Bilirubin 0 mg/dL Last Edit by babberly on 08/16/23 15:00 UA Glucose 0 mg/dL Last Edit by babberly on 08/16/23 15:00 Results Reviewed Results Reviewed: Laboratory Last Values Urine pH (Auto) 5.5 08/16/23 14:53 Specific [place] (Auto) 1.010 08/16/23 14:53 Urine Protein (Auto) 30 mg/dL 08/16/23 14:53 Glucose (UA)(Auto) 0 mg/dL 08/16/23 14:53 Urine Ketones (Auto) Positive 08/16/23 14:53 Urine Blood (Auto) 0 Joss/uL 08/16/23 14:53 Urine Nitrite (Auto) Negative 08/16/23 14:53 Urine Bilirubin (Auto) 0 mg/dL 08/16/23 14:53 Urine Urobilinogen (Auto) 0.2 mg/dL 08/16/23 14:53 Leukocyte Esterase (Auto) 0 Collin/uL 08/16/23 14:53 Assessment & Plan Assessment & Plan (1) Phimosis of penis: Code(s): N47.1 - Phimosis Category: Medical Plan In office urinalysis results reviewed with the patient today; as noted above. Discussed further treatment options for phimosis. Discussed proper care Start clotrimazole-betamethasone as discussed and prescribed. Discussed at length importance of managing diabetes. Patient currently denies any bothersome urinary issues. He reports be happy with current voiding parameters. Will obtain A1c Follow-up in 1-3 months with lab to be completed prior; or sooner with any issues, concerns, and or questions. Orders: Orders Hemoglobin A1c Today E11.9 - Type 2 diabetes mellitus without complications AMB Urinalysis Automated Today Z13.9 - Encounter for screening, unspecified Medications: New clotrimazole-betamethasone 1-0.05 % Apply thin coat 2 times per day 1 appl topical BID 45 grams 1RF 4 weeks N48.1 - Balanitis Discontinued clotrimazole 1% Discontinued Reason: Patient no longer taking 1 appl topical BID 2 weeks 30 grams 0RF Patient Instructions: The patient had an opportunity to ask questions regarding the treatment plan. All questions were answered. Physical exam, labs, and imaging were discussed and reviewed in detail. As well as risks, benefits, and discussion of treatment choices. No major barriers to understanding were identified. The patient expressed understanding and agreement with the above treatment plan. The patient was made aware they should contact our office by phone for worsening of their current condition, the appearance of new symptoms, or with any questions or concerns. Compliance is encouraged with any medications and follow up testing that is ordered. It is a privilege to be allowed the opportunity to participate in? your urological care.? Again, if you have any questions or concerns If you have any questions or concerns please do not hesitate to contact me. The office is [phone]. This note is constructed using voice recognition software. While every effort has been made to ensure accuracy civil preparedness officer errors may have been included. Yours sincerely, JANNA Cano-OSMANI Coding Level of Care Code New Pt Level 4 (46329) Diagnoses Phimosis of penis N47.1
== END 2023-08-16 15:09 | disposition home or self-care (01) ==
PROVIDERS: PCP Nurse Practitioner Primary Care; Visit Provider Nurse Practitioner Family
DX: N47.1 Phimosis (principal); Z13.9 Encounter for screening, unspecified
CPT/HCPCS: 99204

== ENCOUNTER → 2023-08-16 14:41 | Outpatient (BNVA) | payer MEDICAID, SELFPAY | PROVIDERS: PCP Nurse Practitioner Primary Care; Visit Provider Nurse Practitioner Family | DX: N47.1 Phimosis (principal) | CPT/HCPCS: 81003; 99212 ==

== ENCOUNTER 2023-10-09 13:36 | Outpatient (REF) | payer MEDICAID, SELFPAY ==
[2023-10-09 14:52] LABS: Estimated Average Glucose 220 mg/dL; Hemoglobin A1c % 9.3 % (<6.0)
== END 2023-10-09 13:37 | disposition home or self-care (01) ==
LOC: HO.LAB 13:36
PROVIDERS: PCP Nurse Practitioner Primary Care; Visit Provider Nurse Practitioner Family
DX: E11.9 Type 2 diabetes mellitus without complications (principal)
CPT/HCPCS: 36415; 83036

== ENCOUNTER 2023-10-13 14:31 | Outpatient (AMB) | payer MEDICAID, SELFPAY ==
--- NOTE | 2023-10-13 14:39 | A.OFFVIS_ITS ---
Intake Visit Reasons: 2m/LABS Intake Note: Patient presents for follow up visit on: Phimosis Urology Medications: Clotrimazole-Betamethasone Blood Thinner: none Public Health Educator Required: No Accompanied by: Self / Same As Patient Allergies No Known Allergies Allergy (Unverified 10/13/23 15:04) Medication List - Last Reconciled 10/13/23 by JANNA Cano-OSMANI atorvastatin 40 mg PO DAILY clotrimazole-betamethasone 1-0.05 % 1 appl topical BID 4 weeks divalproex (Depakote) 1,000 mg (2 x 500 mg) PO BID lisinopril 5 mg PO DAILY metformin 1,000 mg PO BIDWMEAL HPI Comments Details: Andrés is a very pleasant 33-year-old male patient of Dr. Faust. He has a past medical history of type 2 diabetes. He presents to the office today for follow-up. Of note, patient was seen approximately 2 months ago as a new patient for phimosis at which time he was prescribed betamethasone/clotrimazole and discussion regarding uncontrolled diabetes and circumcision was discussed. In discussion with the patient today he reports compliance with cream as prescribed and feels that it has been somewhat helpful however does continue with difficulty retracting foreskin of the penis. Recent A1c results reviewed with the patient today A1C 07/25 8.2, 10/24 9.3. In assessment of the patient today grade 3 phimosis noted. Otherwise no open areas, lesions, and or drainage noted. Discussed at length further treatment options. Discussed and stressed the importance of managing diabetes in relation to circumcision for healing as well as overall health and well-being. In office urinalysis results reviewed wi th the patient today 2+ protein noted. He discusses his upcoming appointment with his PCP at the end of month for med management of his diabetes he otherwise denies any bothersome urinary issues. He denies urinary urgency, urinary frequency, incontinence, nocturia, hematuria, dysuria, foul smelling urine, changes to urinary stream, flank pain, fever, and or chills. He is happy with his current voiding parameters. [facility] Social History Substance Use Type: Marijuana Review of Systems Const All systems reviewed & are unremarkable except as noted in HPI and below Physical Exam Const General: cooperative, healthy appearing, comfortable, no acute distress, well developed, alert and awake Orientation/consciousness: patient oriented x3 Limitations: no limitations HEENT Head: Yes normal to inspection, Yes normocephalic and Yes atraumatic Ears: hearing grossly normal bilaterally Eyes General: appearance normal, both eyes and all related structures Neck Neck: Yes normal visual inspection and Yes trachea midline Chest Chest palpation & inspection: normal inspection of the chest Resp Effort & Inspection: normal respiratory effort and able to speak in complete sentences Cardio Rate: regular rate GI Inspection: Yes normal to inspection General: Yes no CVA tenderness Penis: uncircumcised and phimosis (grade 3) Scrotum: scrotum normal Testes: Testes normal Back/Spine/Pelvis Back: no CVA tenderness Skin General skin exam: no rashes or lesions noted Neuro General: patient oriented x3 Extrem General: Yes normal to inspection Psych Appearance: grossly normal and well kempt Mental Status: mental status grossly normal Speech and movement: Normal speech and movement present and Clear speech present Affect: normal affect Attitude: cooperative Thought process: Normal thought process present Thought content: Normal thought content present Insight: Fair insight present (Psych) Judgement: Fair judgement present (Psych) Results AMB Urinalysis, Automated UA Leukoctes 0 Collin/uL Last Edit by [employer] on 10/13/23 14:58 UA Nitrite Negative Last Edit by [employer] on 10/13/23 14:58 UA Urobilinogen 0.2 mg/dL Last Edit by [employer] on 10/13/23 14:58 UA Protein 100 mg/dL Last Edit by [employer] on 10/13/23 14:58 UA pH 5.5 Last Edit by [employer] on 10/13/23 14:58 UA Blood 0 Joss/uL Last Edit by [employer] on 10/13/23 14:58 UA Specific [place] 1.015 Last Edit by [employer] on 10/13/23 14:58 UA Ketone Positive Last Edit by [employer] on 10/13/23 14:58 UA Bilirubin 0 mg/dL Last Edit by [employer] on 10/13/23 14:58 UA Glucose 1000 mg/dL Last Edit by [employer] on 10/13/23 14:58 Results Reviewed Results Reviewed: Laboratory Last Values Urine pH (Auto) 5.5 10/13/23 14:56 Specific [place] (Auto) 1.015 10/13/23 14:56 Urine Protein (Auto) 100 mg/dL 10/13/23 14:56 Glucose (UA)(Auto) 1000 mg/dL 10/13/23 14:56 Urine Ketones (Auto) Positive 10/13/23 14:56 Urine Blood (Auto) 0 Joss/uL 10/13/23 14:56 Urine Nitrite (Auto) Negative 10/13/23 14:56 Urine Bilirubin (Auto) 0 mg/dL 10/13/23 14:56 Urine Urobilinogen (Auto) 0.2 mg/dL 10/13/23 14:56 Leukocyte Esterase (Auto) 0 Collin/uL 10/13/23 14:56 Assessment & Plan Assessment & Plan (1) Proteinuria: Code(s): R80.9 - Proteinuria, unspecified Category: Medical (2) Phimosis of penis: Code(s): N47.1 - Phimosis Category: Medical Plan In office urinalysis results reviewed with the patient today; as noted above; will refer to Nephrology for further assessment evaluation of proteinuria. Recent A1c results reviewed with the patient today; as noted above. Continue clotrimazole-betamthasone as discussed and prescribed. Continue follow-up with PCP regarding management of diabetes. Discussed, educated, and stressed the importance of managing diabetes for overall health and well-being. Patient denies any bothersome urinary issues. He reports be happy with current voiding parameters. Will obtain A1c in 3 months. Follow-up in 3 months with A1c; or sooner with any issues, concerns, and or questions. Orders: Orders Hemoglobin A1c 3 Months E11.9 - Type 2 diabetes mellitus without complications AMB Urinalysis Automated 10/13/23 Z13.9 - Encounter for screening, unspecified Referrals Nephrology Referral R80.9 - Proteinuria, unspecified Patient Instructions: The patient had an opportunity to ask questions regarding the treatment plan. All questions were answered. Physical exam, labs, and imaging were discussed and reviewed in detail. As well as risks, benefits, and discussion of treatment choices. No major barriers to understanding were identified. The patient expressed understanding and agreement with the above treatment plan. The patient was made aware they should contact our office by phone for worsening of their current condition, the appearance of new symptoms, or with any questions or concerns. Compliance is encouraged with any medications and follow up testing that is ordered. It is a privilege to be allowed the opportunity to participate in? your urological care.? Again, if you have any questions or concerns If you have any questions or concerns please do not hesitate to contact me. The office is [phone]. This note is constructed using voice recognition software. While every effort has been made to ensure accuracy wild life manager errors may have been included. Yours sincerely, YASMANY Cano Coding Level of Care Code Est Pt Level 3 (45914) Diagnoses Proteinuria R80.9 Phimosis of penis N47.1
== END 2023-10-13 15:06 | disposition home or self-care (01) ==
PROVIDERS: PCP Nurse Practitioner Primary Care; Visit Provider Nurse Practitioner Family
DX: Z13.9 Encounter for screening, unspecified (principal)
CPT/HCPCS: 99213

== ENCOUNTER → 2023-10-13 14:31 | Outpatient (BNVA) | payer MEDICAID, SELFPAY | PROVIDERS: PCP Nurse Practitioner Primary Care; Visit Provider Nurse Practitioner Family | DX: R80.9 Proteinuria, unspecified (principal); N47.1 Phimosis | CPT/HCPCS: 81003; 99212 ==

== ENCOUNTER 2023-10-26 14:35 | Outpatient (AMB) | payer MEDICAID, SELFPAY ==
[2023-10-26 14:37] VITALS: BP 122/92; PULSE 91; O2SAT 98; BMI 30.9
--- NOTE | 2023-10-26 14:37 | HO.NEPHOV ---
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 He has been on lisinopril 5 mg a day. History of seizures he is on Depakote no recent seizures. Currently he is not employed due to seizures. He does not smoke or consume alcohol. He takes marijuana [facility] Social History Substance Use Type: Marijuana Review of Systems Const Denies fever(s) and Denies weight loss Card Denies chest pain Resp Denies cough and Denies hemoptysis GI Denies abdominal pain, Denies diarrhea and Denies nausea Musc Denies back pain Neuro Denies focal weakness Physical Exam Vital Signs: Last Vital Signs Pulse 91 10/26/23 14:37 BP 122/92 H 10/26/23 14:37 Pulse Ox 98 10/26/23 14:37 Oxygen Delivery Method Room Air 10/26/23 14:37 BMI result Body Mass Index 30.9 Const General: comfortable; No acute distress Orientation/consciousness: patient oriented x3 Eyes General: appearance normal, both eyes and all related structures Visual Andres: normal visual andres by confrontation Neck Neck: Yes supple and Yes no JVD Resp Effort & Inspection: normal respiratory effort and respiratory effort not decreased Auscultation: rhonchi Cardio Palpation: no palpable S3 and no palpable S4 Heart sounds: no rubs GI Inspection: Yes normal to inspection Palpation (GI): Soft to palpation Percussion: Yes normal to percussion Auscultation: normal bowel sounds General: Yes no CVA tenderness Back/Spine/Pelvis Back: no CVA tenderness Skin General skin exam: no petechiae and no purpura Neuro General: patient oriented x3 and no focal motor deficits Extrem General: No clubbing and No edema Results Reviewed Nephrology Results: Hgb 15.8 g/dl (14.0-18.0) 09/05/22 WBC 14.3 X10*3/uL (4.8-10.8) H 09/05/22 Plt Count 308 X10*3/uL (160-400) 09/05/22 Sodium 137 mmol/L (135-145) 07/19/23 Potassium 4.2 mmol/L (3.3-5.1) 07/19/23 Chloride 100 mmol/L (96-108) 07/19/23 Carbon Dioxide 24 mmol/L (22-29) 07/19/23 BUN 11 mg/dL (9-16) 07/19/23 Creatinine 0.78 mg/dL (0.5-1.4) 07/19/23 Calcium 9.4 mg/dL (8.4-10.2) 07/19/23 Urine Protein 100 (2+) mg/dL (Neg-Trace) H 09/05/22 Urine Creatinine 146.57 mg/dL 11/18/22 Assessment & Plan Assessment & Plan (1) Proteinuria: Code(s): R80.9 - Proteinuria, unspecified Category: Medical (2) Dyslipidemia: Code(s): E78.5 - Hyperlipidemia, unspecified Category: Medical Plan Young man with longstanding diabetes mellitus with microalbuminuria. Microalbuminuria is most likely due to underlying diabetic kidney disease. He has history of mild hypercalcemia back in 2022 which has resolved. Total protein is elevated 8.2. History of dyslipidemia. Plan plan Increase lisinopril to 10 mg once a day for cardiorenal protection. Encouraged him to stay on low-sodium diet Hemoglobin A1c should be maintained less than 7%. Discussed importance of tight control blood sugar to slow the portion disease. I saw dyslipidemia he should increase exercise activities and cut back on carbohydrate intake. Given the elevated total protein with a history of mild hypercalcemia I will check serum electrophoresis. Orders: Orders Comprehensive Met. Panel 2 Months R80.9 - Proteinuria, unspecified Total Protein Urine Random 2 Months R80.9 - Proteinuria, unspecified Vitamin D 25-OH (D2 and D3) 2 Months R80.9 - Proteinuria, unspecified Complete Blood Count Auto Diff 2 Months R80.9 - Proteinuria, unspecified Creatinine Urine 2 Months R80.9 - Proteinuria, unspecified UA and rflx microscopic 2 Months R80.9 - Proteinuria, unspecified Protein Electrophoresis, Serum 2 Months R80.9 - Proteinuria, unspecified Medications: Changed From lisinopril 5 mg PO DAILY 30 tabs 0RF To lisinopril 10 mg PO DAILY 90 tabs 1RF Coding Level of Care Code New Pt Level 4 (52275) Diagnoses Proteinuria R80.9 Dyslipidemia E78.5
== END 2023-10-26 15:05 | disposition home or self-care (01) ==
PROVIDERS: PCP Nurse Practitioner Primary Care; Referring Provider Nurse Practitioner Family; Visit Provider Internal Medicine Hypertension Specialist
DX: R80.9 Proteinuria, unspecified (principal); E78.5 Hyperlipidemia, unspecified
CPT/HCPCS: 99204

== ENCOUNTER → 2023-10-26 14:35 | Outpatient (BNVA) | payer MEDICAID, SELFPAY | PROVIDERS: PCP Nurse Practitioner Primary Care; Referring Provider Nurse Practitioner Family; Visit Provider Internal Medicine Hypertension Specialist | DX: R80.9 Proteinuria, unspecified (principal); E78.5 Hyperlipidemia, unspecified | CPT/HCPCS: 99202 ==

== ENCOUNTER 2024-01-11 09:47 | Outpatient (REF) | payer MEDICAID, SELFPAY ==
[2024-01-11 10:04] LABS: MANUAL DIFF FLAG NO
[2024-01-11 10:37] LABS: Basophils Percent Auto 0.3 % (0-2); Eosinophils Absolute Auto 0.1 X10*3/uL (0.0-0.4); Eosinophils Percent Auto 0.6 % (0-4); Hematocrit 43.8 % (42.0-52.0); Hemoglobin 14.7 g/dl (14.0-18.0); Lymphocytes Absolute Auto 3.5 X10*3/uL (1.2-4.9); Lymphocytes Percent Auto 35.6 % (20-40); Mean Corpuscular HGB Conc 33.6 g/dl (31.0-36.0); Mean Corpuscular Hemoglobin 27.5 pg (27.0-33.0); Mean Platelet Volume 10.1 fL (9.4-12.4); Monocytes Absolute Auto 0.8 X10*3/uL (0.1-1.2); Monocytes Percent Auto 7.9 % (2-11); Neutrophils Absolute Auto 5.4 x10*3/uL (2.0-8.3); Neutrophils Percent Auto 54.6 % (45-73); Platelet Count 323 X10*3/uL (160-400); Red Blood Count 5.34 X10*6/uL (4.60-5.80); Red Cell Distribution Width 14.1 % (11.0-16.0); White Blood Count 9.8 X10*3/uL (4.8-10.8)
[2024-01-11 10:46] LABS: Estimated Average Glucose 180 mg/dL; Hemoglobin A1c % 7.9 % (<6.0); Total Hemoglobin (HGBA1C) 3737.7287 umol/L
[2024-01-11 10:57] LABS: Appearance Urine Cloudy; Color Urine Dark Yellow; Glucose Urine UA 500 mg/dL (Negative); Leukocyte Esterase Urine Small (1+) (Negative); Nitrite Urine Negative (Negative); PH 5.5 (5.0-9.0); Specific Gravity - Urine >= 1.030 (1.005-1.025); UMIC TRIGGER UA YES; Urine Blood Negative (Negative); Urine Ketones 15 mg/dL (Negative); Urine Protein 100 (2+) mg/dL (Neg-Trace)
[2024-01-11 11:23] LABS: Alanine Aminotransferase 27 U/L (0-40); Albumin Level 4.8 g/dL (3.5-5.0); Alkaline Phosphatase 69 U/L (39-117); Anion Gap 16 (12-20); Aspartate Amino Transferase 14 U/L (5-37); Bilirubin Total 0.7 mg/dL (0.0-1.0); Blood Urea Nitrogen 13 mg/dL (9-16); Calcium 9.7 mg/dL (8.4-10.2); Carbon Dioxide 26 mmol/L (22-29); Chloride 103 mmol/L (96-108); Estimated Glomerular Filt Rate > 60; Glucose Random 152 mg/dL (60-115); Sodium 141 mmol/L (135-145); Total Protein 8.2 g/dL (6.5-8.0)
[2024-01-11 11:26] LABS: Bacteria Urine None Seen (None Seen); Hyaline Casts Urine 0-2 /LPF (0-2); RBC Urine 0-2 /HPF (0-2); Squamous Epithelial Cell Urine 0-2 /HPF (0-2); WBC Urine >50 /HPF (0-5)
[2024-01-11 11:32] LABS: Creatinine Urine 551.99 mg/dL; Total Protein Urine Random 76 mg/dL (<12)
[2024-01-15 18:38] LABS: Vitamin D 25-OH, D2 <4 ng/mL; Vitamin D 25-OH, D3 12 ng/mL; Vitamin D 25-OH, Total 12 ng/mL (30-100)
[2024-01-15 22:48] LABS: Prot Elec - Albumin 4.7 g/dL (3.8-4.8); Prot Elec - Alpha1 0.2 g/dL (0.2-0.3); Prot Elec - Alpha2 0.9 g/dL (0.5-0.9); Prot Elec - Beta 1 0.5 g/dL (0.4-0.6); Prot Elec - Beta 2 0.4 g/dL (0.2-0.5); Prot Elec - Gamma 1.2 g/dL (0.8-1.7); Prot Elec - Total Protein 7.9 g/dL (6.1-8.1)
== END 2024-01-11 09:48 | disposition home or self-care (01) ==
LOC: HO.LAB 09:47
PROVIDERS: PCP Nurse Practitioner Primary Care; Referring Provider Internal Medicine Hypertension Specialist; Visit Provider Nurse Practitioner Family
DX: R80.9 Proteinuria, unspecified (principal); E11.9 Type 2 diabetes mellitus without complications
CPT/HCPCS: 36415; 80053; 81001; 82306; 82570; 83036; 84156; 84165; 85025

== ENCOUNTER 2024-01-16 08:40 | Outpatient (AMB) | payer MEDICAID, SELFPAY ==
--- NOTE | 2024-01-16 08:43 | A.OFFVIS_ITS ---
Intake Visit Reasons: 3m/labs(set) Intake Note: Patient presents for follow up visit on: Phimosis Urology Medications: Clotrimazole-Betamethasone Blood Thinner: none Resident Medical Officer Required: No Accompanied by: Self / Same As Patient Allergies No Known Allergies Allergy (Verified 01/16/24 09:19) Medication List - Last Reconciled 01/16/24 by YASMANY Cano atorvastatin 40 mg PO DAILY clotrimazole-betamethasone 1-0.05 % 1 appl topical BID 4 weeks divalproex (Depakote) 1,000 mg (2 x 500 mg) PO BID lisinopril 10 mg PO DAILY metformin 1,000 mg PO BIDWMEAL HPI Comments Details: Andrés is a very pleasant 33-year-old male patient of Dr. Faust. He has a past medical history of type 2 diabetes. He presents to the office today for follow-up of his phimosis. Of note, patient was seen approximately 3 months ago at which time discussion regarding importance of managing A1c for circumcision was discussed. Recent A1c results reviewed with the patient today. Discussed decrease in A1c. He does report feeling betamethasone/clotrimazole has been somewhat helpful in phimosis however would like to continue/proceed with circumcision. A1c levels are as follows: A1C 07/25 8.2, 10/24 9.3, 01/24 7.9 In assessment of the patient today grade 3 phimosis noted otherwise no open areas, lesions, and or drainage noted. Discussed and stressed the importance of managing diabetes in relation to circumcision for healing as well as overall health and well-being. In office urinalysis results reviewed with the patient today 2+ protein noted. He discusses his upcoming appointment with his n ephrologist miss . He otherwise denies any bothersome urinary issues. He denies urinary urgency, urinary frequency, incontinence, nocturia, hematuria, dysuria, foul smelling urine, changes to urinary stream, flank pain, fever, and or chills. He is happy with his current voiding parameters. [facility] Social History Substance Use Type: Marijuana Review of Systems Const All systems reviewed & are unremarkable except as noted in HPI and below Physical Exam Const General: cooperative, healthy appearing, comfortable, no acute distress, well developed, alert and awake Orientation/consciousness: patient oriented x3 Limitations: no limitations HEENT Head: Yes normal to inspection, Yes normocephalic and Yes atraumatic Ears: hearing grossly normal bilaterally Eyes General: appearance normal, both eyes and all related structures Neck Neck: Yes normal visual inspection and Yes trachea midline Chest Chest palpation & inspection: normal inspection of the chest Resp Effort & Inspection: normal respiratory effort and able to speak in complete sentences Cardio Rate: regular rate GI Inspection: Yes normal to inspection General: Yes no CVA tenderness Penis: uncircumcised and phimosis (grade 3) Scrotum: scrotum normal Testes: Testes normal Back/Spine/Pelvis Back: no CVA tenderness Skin General skin exam: no rashes or lesions noted Neuro General: patient oriented x3 Extrem General: Yes normal to inspection Psych Appearance: grossly normal and well kempt Mental Status: mental status grossly normal Speech and movement: Normal speech and movement present and Clear speech present Affect: normal affect Attitude: cooperative Thought process: Normal thought process present Thought content: Normal thought content present Insight: Fair insight present (Psych) Judgement: Fair judgement present (Psych) Results AMB Urinalysis, Automated UA Leukoctes 0 Collin/uL Last Edit by Gustavo Bryan on 01/16/24 08:55 UA Nitrite Last Edit by Gustavo Bryan on 01/16/24 08:55 UA Urobilinogen 0.2 mg/dL Last Edit by Gustavo Bryan on 01/16/24 08:55 UA Protein 100 mg/dL Last Edit by Gustavo Bryan on 01/16/24 08:55 UA pH 5.5 Last Edit by Gustavo Bryan on 01/16/24 08:55 UA Blood 0 Joss/uL Last Edit by Gustavo Bryan on 01/16/24 08:55 UA Specific [place] 1.030 Last Edit by Gustavo Bryan on 01/16/24 08:55 UA Ketone Last Edit by Gustavo Bryan on 01/16/24 08:55 UA Bilirubin 1 mg/dL Last Edit by Gustavo Bryan on 01/16/24 08:55 UA Glucose 100 mg/dL Last Edit by Gustavo Bryan on 01/16/24 08:55 Results Reviewed Results Reviewed: Laboratory Last Values Urine pH (Auto) 5.5 01/16/24 08:54 Specific [place] (Auto) 1.030 01/16/24 08:54 Urine Protein (Auto) 100 mg/dL 01/16/24 08:54 Glucose (UA)(Auto) 100 mg/dL 01/16/24 08:54 Urine Blood (Auto) 0 Joss/uL 01/16/24 08:54 Urine Bilirubin (Auto) 1 mg/dL 01/16/24 08:54 Urine Urobilinogen (Auto) 0.2 mg/dL 01/16/24 08:54 Leukocyte Esterase (Auto) 0 Collin/uL 01/16/24 08:54 Assessment & Plan Assessment & Plan (1) Phimosis of penis: Code(s): N47.1 - Phimosis Category: Medical (2) Diabetes: Code(s): E11.9 - Type 2 diabetes mellitus without complications Category: Medical (3) Proteinuria: Code(s): R80.9 - Proteinuria, unspecified Category: Medical Plan: Risks, benefits and alternatives to therapy were discussed. These include but are not limited to infection, bleeding, damage to local organs and tissues, need for further interventions. ? Anesthetic risks regarding cardiac arrhythmia, blood clots, and potential mortality were discussed. The patient understands the typical recovery time and the outpatient nature of the procedure. After consideration of these risks the patient gives full informed consent and they wish to move ahead with the procedure. Plan In office urinalysis results reviewed with the patient today; as noted above; discussed proteinuria patient follows up with Nephrology next week per patient. Discussed importance of managing diabetes for near future circumcision as well as overall health and well-being. Risks and benefits of circumcision were discussed. All questions were answered. Recent A1c results reviewed with the patient today. Patient otherwise denies any bothersome urinary issues. He reports be happy with current voiding parameters. Will schedule for circumcision as discussed. Follow-up status post surgery per doctor's orders; or sooner with any issues, concerns, and or questions. Orders: Orders AMB Urinalysis Automated Today Z13.9 - Encounter for screening, unspecified Patient Instructions: The patient had an opportunity to ask questions regarding the treatment plan. All questions were answered. Physical exam, labs, and imaging were discussed and reviewed in detail. As well as risks, benefits, and discussion of treatment choices. No major barriers to understanding were identified. The patient expre ssed understanding and agreement with the above treatment plan. The patient was made aware they should contact our office by phone for worsening of their current condition, the appearance of new symptoms, or with any questions or concerns. Compliance is encouraged with any medications and follow up testing that is ordered. It is a privilege to be allowed the opportunity to participate in? your urological care.? Again, if you have any questions or concerns If you have any questions or concerns please do not hesitate to contact me. The office is [phone]. This note is constructed using voice recognition software. While every effort has been made to ensure accuracy shuttle truck driver errors may have been included. Yours sincerely, YASMANY Cano Coding Level of Care Code Est Pt Level 4 (26745) Diagnoses Phimosis of penis N47.1 Diabetes E11.9 Proteinuria R80.9
== END 2024-01-16 09:23 | disposition home or self-care (01) ==
PROVIDERS: PCP Nurse Practitioner Primary Care; Visit Provider Nurse Practitioner Family
DX: N47.1 Phimosis (principal); E11.9 Type 2 diabetes mellitus without complications; R80.9 Proteinuria, unspecified; Z13.9 Encounter for screening, unspecified
CPT/HCPCS: 99214

== ENCOUNTER → 2024-01-16 08:40 | Outpatient (BNVA) | payer MEDICAID, SELFPAY | PROVIDERS: PCP Nurse Practitioner Primary Care; Visit Provider Nurse Practitioner Family | DX: N47.1 Phimosis (principal); E11.9 Type 2 diabetes mellitus without complications; R80.9 Proteinuria, unspecified | CPT/HCPCS: 81003; 99212 ==

== ENCOUNTER 2024-01-25 13:25 | Outpatient (AMB) | payer MEDICAID, SELFPAY ==
--- NOTE | 2024-01-25 13:31 | HO.NEPHOV ---
Vital Signs 01/25/24 13:32 01/25/24 13:43 Height 5 ft 7 in Weight 193 lb BMI 30.2 BP 120/90 H 110/80 Blood Pressure Location Lt brachial Lt brachial Position Sitting Sitting Pulse 109 H Pulse Source Pulse Oximeter Pulse Oximetry (%) 98 Oxygen Delivery Method Room Air Intake Visit Reasons: Proteinuria Mercury Cell Cleaner Required: No Accompanied by: Self / Same As Patient Allergies No Known Allergies Allergy (Verified 01/25/24 13:32) Medication List - Last Reconciled 01/25/24 by Broderick Swenson MD aspirin 81 mg PO DAILY atorvastatin 80 mg PO DAILY clotrimazole-betamethasone 1-0.05 % 1 appl topical BID 4 weeks divalproex (Depakote) 1,000 mg (2 x 500 mg) PO BID glipizide ER 10 mg PO BID lisinopril 10 mg PO DAILY metformin 1,000 mg PO BIDWMEAL HPI Comments Details: 33-year-old man with a history of diabetes mellitus for quite some time has been referred for evaluation of microalbuminuria. He has been on lisinopril 5 mg a day. History of seizures he is on Depakote no recent seizures. Currently he is not employed due to seizures. He does not smoke or consume alcohol. He takes [facility] Social History Substance Use Type: Marijuana Physical Exam Vital Signs: Last Vital Signs Pulse 109 H 01/25/24 13:32 BP 120/90 H 01/25/24 13:32 Pulse Ox 98 01/25/24 13:32 Oxygen Delivery Method Room Air 01/25/24 13:32 BMI result Body Mass Index 30.2 Results Reviewed Nephrology Results: Hgb 14.7 g/dl (14.0-18.0) 01/11/24 WBC 9.8 X10*3/uL (4.8-10.8) 01/11/24 Plt Count 323 X10*3/uL (160-400) 01/11/24 Sodium 141 mmol/L (135-145) 01/11/24 Potassium 4.0 mmol/L (3.3-5.1) 01/11/24 Chloride 103 mmol/L (96-108) 01/11/24 Carbon Dioxide 26 mmol/L (22-29) 01/11/24 BUN 13 mg/dL (9-16) 01/11/24 Creatinine 0.88 mg/dL (0.5-1.4) 01/11/24 Calcium 9.7 mg/dL (8.4-10.2) 01/11/24 Urine Protein 100 (2+) mg/dL (Neg-Trace) H 01/11/24 Urine Creatinine 551.99 mg/dL 01/11/24 Assessment & Plan Assessment & Plan (1) Proteinuria: Code(s): R80.9 - Proteinuria, unspecified Category: Medical (2) Dyslipidemia: Code(s): E78.5 - Hyperlipidemia, unspecified Category: Medical Plan Young man with longstanding diabetes mellitus with microalbuminuria. Microalbuminuria is most likely due to underlying diabetic kidney disease. He has history of mild hypercalcemia back in 2022 which has resolved. Total protein is elevated 8.2. History of dyslipidemia. Plan plan lisinopril 10 mg once a day for cardiorenal protection. Encouraged him to stay on low-sodium diet Hemoglobin A1c should be maintained less than 7%. Discussed importance of tight control blood sugar to slow the portion disease. dyslipidemia he should increase exercise activities and cut back on carbohydrate intake. Given the elevated total protein with a history of mild hypercalcemia No MCGP repeat Ca is normal Vit D def Add- Vit D 1000 U daily Orders: Orders Vitamin D 25-OH (D2 and D3) 6 Months R80.9 - Proteinuria, unspecified Sodium Urine Random 6 Months R80.9 - Proteinuria, unspecified Basic Metabolic Panel 6 Months R80.9 - Proteinuria, unspecified Creatinine Urine 6 Months R80.9 - Proteinuria, unspecified Medications: New cholecalciferol (vitamin D3) 25 mcg PO DAILY 90 caps 1RF Coding Level of Care Code Est Pt Level 4 (78491) Diagnoses Proteinuria R80.9 Dyslipidemia E78.5
[2024-01-25 13:32] VITALS: BP 120/90; PULSE 109; O2SAT 98; BMI 30.2
[2024-01-25 13:43] VITALS: BP 110/80
== END 2024-01-25 13:47 | disposition home or self-care (01) ==
PROVIDERS: PCP Nurse Practitioner Primary Care; Visit Provider Internal Medicine Hypertension Specialist
DX: R80.9 Proteinuria, unspecified (principal); E78.5 Hyperlipidemia, unspecified; E11.29 Type 2 diabetes mellitus with other diabetic kidney complication
CPT/HCPCS: 99214

== ENCOUNTER → 2024-01-25 13:25 | Outpatient (BNVA) | payer MEDICAID, SELFPAY | PROVIDERS: PCP Nurse Practitioner Primary Care; Visit Provider Internal Medicine Hypertension Specialist | DX: R80.9 Proteinuria, unspecified (principal); E78.5 Hyperlipidemia, unspecified; E11.9 Type 2 diabetes mellitus without complications | CPT/HCPCS: 99212 ==

== ENCOUNTER 2024-01-30 05:52 | Day surgery (SDC) | payer MEDICAID, SELFPAY ==
--- NOTE | 2024-01-29 09:15 | HO.ANESPROP2 ---
Documented by User: Adrianna Eddy NP 01/29/24 09:23 HPI - Anesthesia Eval Consult details Narrative: 33yo M for Circumcision No recent seizures per 01/2024 nephro eval (proteinuria r/t diabetes) Hx of afib r/t seizure. No recurrance. Aspirin only. 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 (Acute) Past Medical History Medical History (Updated 01/29/24 @ 08:20 by Ivonne Nuno RN) Paroxysmal A-fib Depression HTN (hypertension) Sleep apnea Seizure Hyperlipidemia Diabetes Social History Social History Patient Tobacco Use Status: Never used Tobacco Use of substances other than those prescribed or required for medical reasons: Yes Substance Use Type: Marijuana Substance Use Type Other:: last smoked one week ago Are you DNR?: No Advance Directives: No Advance Directives Information Provided: Yes Meds Allergies Allergy/AdvReac Type Severity Reaction Status Date / Time No Known Allergies Allergy Verified 01/30/24 06:18 Home Medications ?Medication ?Instructions ?Recorded ?Confirmed ?Last Taken ?Type aspirin 81 mg tablet,delayed 81 mg PO DAILY 01/25/24 01/30/24 01/15/24 History release atorvastatin 80 mg tablet 80 mg PO DAILY 01/25/24 01/30/24 Unknown History glipizide 10 mg tablet, extended 10 mg PO BID 01/25/24 01/30/24 Unknown History release 24 hr dulaglutide 0.75 mg/0.5 mL 0.75 mg subcut QWEEK 01/29/24 01/30/24 01/15/24 History subcutaneous pen injector (Trulicity) Exam Pertinent Lab Results Pertinent Lab Results: Laboratory Tests 01/11/24 10:02 WBC 9.8 Hgb 14.7 Hct 43.8 Plt Count 323 Sodium 141 Potassium 4.0 Chloride 103 Carbon Dioxide 26 BUN 13 Creatinine 0.88 Random Glucose 152 H Estimat Average Glucose 180 Hemoglobin A1c % 7.9 H Calcium 9.7 Total Bilirubin 0.7 AST 14 ALT 27 Alkaline Phosphatase 69 Total Protein 8.2 H Total Protein (PEP) 7.9 Albumin 4.8 Albumin (PEP) 4.7 Gxkou-7-Nicoejgbh 0.2 Amctn-2-Creyxqbzq 0.9 Rpgq-6-Ihedzpwf 0.5 Wveb-9-Bijcysaq 0.4 Gamma Globulins 1.2 Narrative Narrative: EKG 2022 Vent. Rate : 092 BPM Atrial Rate : 092 BPM P-R Int : 144 ms QRS Dur : 086 ms QT Int : 352 ms P-R-T Axes : 068 061 -22 degrees QTc Int : 435 ms Normal sinus rhythm Possible Inferior infarct (cited on or before 26-APR-2015) T wave abnormality, consider lateral ischemia Abnormal ECG When compared with ECG of 26-APR-2015 17:22, No significant change was found Assessment and Plan Assessment Anesthesia Assessment: Chart Reviewed Documented by User: Rashawn Jane MD 01/30/24 07:27 [facility] Past Medical History Medical History (Updated 01/29/24 @ 08:20 by Ivonne Nuno RN) Paroxysmal A-fib Depression HTN (hypertension) Sleep apnea Seizure Hyperlipidemia Diabetes Family History Family history of problems with anesthesia: No Surgical History History of Problems with Anesthesia: No Social History Social History Patient Tobacco Use Status: Never used Tobacco Use of substances other than those prescribed or required for medical reasons: Yes Substance Use Type: Marijuana Substance Use Type Other:: last smoked one week ago Are you DNR?: No Advance Directives: No Advance Directives Information Provided: Yes Meds Allergies Allergy/AdvReac Type Severity Reaction Status Date / Time No Known Allergies Allergy Verified 01/30/24 06:18 Home Medications ?Medication ?Instructions ?Recorded ?Confirmed ?Last Taken ?Type aspirin 81 mg tablet,delayed 81 mg PO DAILY 01/25/24 01/30/24 01/15/24 History release atorvastatin 80 mg tablet 80 mg PO DAILY 01/25/24 01/30/24 Unknown History glipizide 10 mg tablet, extended 10 mg PO BID 01/25/24 01/30/24 Unknown History release 24 hr dulaglutide 0.75 mg/0.5 mL 0.75 mg subcut QWEEK 01/29/24 01/30/24 01/15/24 History subcutaneous pen injector (Trulicity) Exam Airway Mallampati Class: II TM Dist: <=3cm Neck ROM: Full Loose/Missing/Broken Teeth: No Heart: ok Lungs: ok Assessment and Plan Assessment Anesthesia Assessment: Anesthesia Plan Discussed Final Anesthetic Review Family History of Problems with Anesthesia: No History of Problems with Anesthesia: No NPO: Yes ASA Class: III Final Preanesthetic Review: No Changes in Pt Med Stat, Meds/Allgs Chart Reviewed, Consent Obtained/Reviewed and Anes Risks/Benef Reviewed Patient Risk: Intermediate Procedure Risk: Low Anesthetic Plan Anesthetic Plan: GA and Agree w/ Assess. and Plan Disposition: Standard PACU
[2024-01-30 06:19] VITALS: BP 134/93; PULSE 84; RESP 16; TEMP 36.8; O2SAT 97; BMI 30.1
[2024-01-30 06:48] LABS: Glucose, Whole Blood 134 mg/dL (60-115)
[2024-01-30] MEDS: Lactated Ringers 1,000 ML 100 ML IVCONT (06:51)
--- NOTE | 2024-01-30 07:34 | MHC.SHP ---
Pre-Procedural Eval Section A - 24 Hr Update-Section A only Date of Service: 01/30/24 The patient is an INPATIENT: No The patient has been examined within 24 hours of the surgical procedure. The History & Physical has been completed within 30 days and I have reviewed it.: Yes Section B - Complete if H&P > 30 days Chief Complaint: Phimosis Allergies: Allergies Allergy/AdvReac Type Severity Reaction Status Date / Time No Known Allergies Allergy Verified 01/30/24 06:18 Plan Diagnosis/Plan: Unchanged I have reviewed the history and physical and performed a pertinent physical examination on my patient. No changes have occurred unless specified. Circumcision. Risks including but not limited to infection, bleeding discussed. Time Spent With Patient Time: Total time managing care of this patient today ____ minutes.
[2024-01-30 09:26] VITALS: BP 126/83; PULSE 86; RESP 16; TEMP 36.2; O2SAT 99
[2024-01-30 09:31] VITALS: BP 119/75; PULSE 84; RESP 16; O2SAT 99
[2024-01-30 09:36] VITALS: BP 126/88; PULSE 73; RESP 16; O2SAT 98
--- NOTE | 2024-01-30 09:40 | W.PM.OPN ---
Operative Note Operative Note Date of Service: 01/30/24 Narrative: PreOperative Diagnosis:? ? Balanitis, phimosis Post Operative Diagnosis:?Balanitis, phimosis Procedure:?Circumcision Surgeon:?Dr Jami Taylor Anesthesia:? General Procedure: After informed consent was verified the patient was brought to the operating room and placed in a supine position.? Anesthesia was performed per protocol. The patient was prepped and draped in the usual sterile fashion. Safety pause time-out was performed. Antibiotics confirmed. Penile block was performed. With the foreskin over the glans a circumferential incision is made at the level of the ramirez. The fore skin was then retracted and a circumferential incision was made 0.5 cm below the ramirez. The foreskin is removed with cautery. The skin is closed in 4 quadrants with 4-0 chromic, each quadrant closed with running 4-0 chromic, xeroform dressing and bacitracin ointment was used over the incision and then incision covered with cling. The patient tolerated the procedure well and was transferred to the recovery area upon completion. Complications: None
[2024-01-30 09:41] VITALS: BP 126/87; PULSE 79; RESP 16; O2SAT 96
[2024-01-30 09:56] VITALS: BP 126/88; PULSE 77; RESP 16; TEMP 36.1; O2SAT 99
== END 2024-01-30 10:43 | disposition home or self-care (01) ==
PROVIDERS: PCP Nurse Practitioner Primary Care; Visit Provider Urology
PROC: (CPT 54161; principal; 2024-01-30 07:30)
DX: N47.1 Phimosis (principal); N48.1 Balanitis; R80.9 Proteinuria, unspecified; E11.9 Type 2 diabetes mellitus without complications; I48.0 Paroxysmal atrial fibrillation; I10 Essential (primary) hypertension; Z79.84 Long term (current) use of oral hypoglycemic drugs; Z79.85 Long-term (current) use of injectable non-insulin antidiabetic drugs; Z79.82 Long term (current) use of aspirin; Z79.899 Other long term (current) drug therapy
CPT/HCPCS: 54161; 82947; 88304; J0690; J2003; J2704; J2795; J3010

== ENCOUNTER → 2024-01-30 05:52 | Outpatient (BNV) | payer MEDICAID, SELFPAY | PROVIDERS: PCP Nurse Practitioner Primary Care; Visit Provider Urology | DX: N47.1 Phimosis (principal); N48.1 Balanitis | CPT/HCPCS: 54161 ==

== ENCOUNTER → 2024-02-05 08:47 | Outpatient (BNVA) | payer MEDICAID, SELFPAY | PROVIDERS: PCP Nurse Practitioner Primary Care; Visit Provider Urology ==

== ENCOUNTER 2024-02-28 13:44 | Outpatient (AMB) | payer MEDICAID, SELFPAY ==
--- NOTE | 2024-02-28 13:50 | A.OFFVIS_ITS ---
Intake Visit Reasons: Circumcision- follow up Intake Note: Patient is present for Circumcision F/u Blood Thinner:aspirin MED:OXYCODONE ALLERIGES: NONE Print Production Manager Required: No Allergies No Known Allergies Allergy (Verified 01/30/24 06:18) HPI Comments Details: 02/28/24--s/p circ --01/30/24-examination today incision is well healed. Discussed with Andrés the importance of keeping his glucose under control as he can still develop fungal rashes in areas in his body that are moist such as below the pannus, groin and possibly the penis again. Follow-up p.r.n. at this time. Review of chart: 01/16/24--Andrés is a very pleasant 33-year-old male patient of Dr. Faust. He has a past medical history of type 2 diabetes. He presents to the office today for follow-up of his phimosis. Of note, patient was seen approximately 3 months ago at which time discussion regarding importance of managing A1c for circumcision was discussed. Recent A1c results reviewed with the patient today. Discussed decrease in A1c. He does report feeling betamethasone/clotrimazole has been somewhat helpful in phimosis however would like to continue/proceed with circumcision. A1c levels are as follows: A1C 07/25 8.2, 10/24 9.3, 01/24 7.9 In assessment of the patient today grade 3 phimosis noted otherwise no open areas, lesions, and or drainage noted. Discussed and stressed the importance of managing diabetes in relation to circumcision for healing as well as overall health and well-being. In office urinalysis results reviewed with the patient today 2+ protein noted. He discusses his upcoming appointment with his director learning services miss . He otherwise denies any bothersome urinary issues. He denies urinary urgency, urinary frequency, incontinence, nocturia, hematuria, dysuria, foul smelling urine, changes to urinary stream, flank pain, fever, and or chills. He is happy with his current voiding parameters. [facility] Medical History (Updated 01/29/24 @ 08:20 by Ivonne Nuno RN) Paroxysmal A-fib Depression HTN (hypertension) Sleep apnea Seizure Hyperlipidemia Diabetes Social History Patient Tobacco Use Status: Never used Tobacco Substance Use Type: Marijuana Review of Systems Const All systems reviewed & are unremarkable except as noted in HPI and below Reports no additional complaints Eyes Reports no additional complaints ENT Reports no additional complaints Card Reports no additional complaints Resp Reports no additional complaints GI Reports no additional complaints Reports as per HPI Musc Reports no additional complaints Skin/Breast Reports system reviewed and no additional complaints, except as documented Neuro Reports no additional complaints Psych Reports no additional complaints Endo Reports no additional complaints Pablo/Lymph Reports no additional complaints Aller/Immun Reports no additional complaints Results AMB Urinalysis, Automated UA Leukoctes 0 Collin/uL Last Edit by Chen Mary Ellen on 02/28/24 14:28 UA Nitrite Negative Last Edit by Chen Mary Ellen on 02/28/24 14: UA Urobilinogen 0.2 mg/dL Last Edit by Chen Mary Ellen on 02/28/24 14: UA Protein 100 mg/dL Last Edit by Chen Mary Ellen on 02/28/24 14:28 UA pH 5.5 Last Edit by Chen Mary Ellen on 02/28/24 14:28 UA Blood 0 Joss/uL Last Edit by Chen Mary Ellen on 02/28/24 14:28 UA Specific [place] 1.030 Last Edit by Chen Mary Ellen on 02/28/24 14:28 UA Ketone Positive Last Edit by Chen Mary Ellen on 02/28/24 14:28 UA Bilirubin 1 mg/dL Last Edit by Chen Mary Ellen on 02/28/24 14:28 UA Glucose 100 mg/dL Last Edit by Chen Mary Ellen on 02/28/24 14:28 Results Reviewed Results Reviewed: Laboratory Last Values Urine pH (Auto) 5.5 02/28/24 14:25 Specific [place] (Auto) 1.030 02/28/24 14:25 Urine Protein (Auto) 100 mg/dL 02/28/24 14:25 Glucose (UA)(Auto) 100 mg/dL 02/28/24 14: Urine Ketones (Auto) Positive 02/28/24 14: Urine Blood (Auto) 0 Joss/uL 02/28/24 14:25 Urine Nitrite (Auto) Negative 02/28/24 14: Urine Bilirubin (Auto) 1 mg/dL 02/28/24 14: Urine Urobilinogen (Auto) 0.2 mg/dL 02/28/24 14:25 Leukocyte Esterase (Auto) 0 Collin/uL 02/28/24 14:25 Assessment & Plan Assessment & Plan (1) Diabetes: Code(s): E11.9 - Type 2 diabetes mellitus without complications Category: Medical (2) Status post routine circumcision: Code(s): Z98.890 - Other specified postprocedural states Category: Surgical Plan Follow-up p.r.n. at this time. Orders: Orders AMB Urinalysis Automated 02/28/24 N39.0 - Urinary tract infection, site not specified Patient Instructions: The patient had an opportunity to ask questions regarding treatment plan. The patient expressed understanding and agreement with the above treatment plan. The patient is aware they should contact our office by phone for worsening of their current condition or the appearance of new symptoms. Compliance is encouraged with any medications and followup testing that is ordered. It is a privilege to be allowed the opportunity to participate in the urologic care of your patient. If you have any questions or concerns regarding treatment for the above conditions please do not hesitate to contact me. The office telephone contact is [phone]. This note is constructed in part using voice recognition software. While every effort has been made to ensure accuracy envelope fold operator errors may have been included. Yours sincerely, Jami Taylor MD Coding Level of Care Code Est Pt Level 3 (35495) Diagnoses Diabetes E11.9 Status post routine circumcision Z98.890
== END 2024-02-28 15:35 | disposition home or self-care (01) ==
PROVIDERS: PCP Nurse Practitioner Primary Care; Visit Provider Urology
DX: E11.9 Type 2 diabetes mellitus without complications (principal); Z98.890 Other specified postprocedural states
CPT/HCPCS: 99213

== ENCOUNTER → 2024-02-28 13:44 | Outpatient (BNVA) | payer MEDICAID, SELFPAY | PROVIDERS: PCP Nurse Practitioner Primary Care; Visit Provider Urology | DX: E11.9 Type 2 diabetes mellitus without complications (principal); Z98.890 Other specified postprocedural states | CPT/HCPCS: 81003; 99212 ==